=== PATIENT | female | born 2000 | race Caucasian/White ===

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

== ENCOUNTER 2023-10-04 21:10 | Emergency (ER) | payer OTHER ==
[~2023-10-04] VITALS: Ht 160 cm; Wt 72.6 kg
[2023-10-04 21:31] VITALS: BP 127/80; PULSE 106; RESP 16; TEMP 97.4; O2SAT 99
[2023-10-05] MEDS: ONDANSETRON 4 MG/2 ML VIAL IVP ONE (01:16)
[2023-10-05] MEDS: KETOROLAC 30 MG/ML VIAL IVP ONE (01:17)
[2023-10-05] MEDS: NACL 0.9% 1,000 ML IV ONE (01:17)
[2023-10-05 01:20] VITALS: O2SAT 98
[2023-10-05 01:26] LABS: BASOPHILS # (AUTO) 0.1 K/uL (0.00-0.22); BASOPHILS % (AUTO) 0.5 % (0.0-2.0); EOSINOPHILS # (AUTO) 0.1 K/uL (0-0.4); EOSINOPHILS % (AUTO) 0.6 % (0.0-4.0); HEMATOCRIT 46.3 % (36-48); HEMOGLOBIN 16.2 g/dL (12.0-16.0); LYMPHOCYTES # (AUTO) 1.9 K/uL (2.5-16.5); LYMPHOCYTES % (AUTO) 18.3 % (20.5-51.1); MEAN CORPUSCULAR HEMOGLOBIN 30 pg (27-31); MEAN CORPUSCULAR HGB CONC 35 g/dL (33-37); MEAN CORPUSCULAR VOLUME 85.3 fL (80-94); MONOCYTES # (AUTO) 0.7 K/uL (0.8-1.0); MONOCYTES % (AUTO) 6.3 % (1.7-9.3); NEUTROPHILS # (AUTO) 7.9 K/uL (1.8-7.7); NEUTROPHILS % (AUTO) 74.3 % (42.2-75.2); PLATELET COUNT (AUTO) 548 K/uL (140-450); RED BLOOD CELL COUNT(AUTO) 5.42 MIL/uL (4.20-5.40); RED CELL DISTRIBUTION WIDTH 12.6 % (11.6-13.7); WHITE BLOOD COUNT (AUTO) 10.6 K/uL (4.8-10.8)
[2023-10-05 01:33] LABS: ANION GAP 19.4 (8-16); CALCIUM 10.2 mg/dL (8.5-10.1); CARBON DIOXIDE 28.5 mmol/L (21-32); POTASSIUM 3.9 mmol/L (3.5-5.1)
[2023-10-05 01:44] LABS: APPEARANCE,URINE CLEAR (CLEAR); BILIRUBIN,URINE 1+ (NEGATIVE); BLOOD, URINE 2+ (NEGATIVE); COLOR,URINE YELLOW (YELLOW); LEUKOCYTE ESTERASE ,URINE 2+ (NEGATIVE); NITRITE, URINE NEGATIVE (NEGATIVE); PH,URINE 8.5 (5.0-9.0); PROTEIN,URINE 1+ (NEGATIVE); UGLUCOSE NEGATIVE (NEGATIVE); UROBILINOGEN,URINE 0.2 EU/dL (0.2 - 1)
[2023-10-05 01:58] LABS: ALBUMIN 4.8 g/dL (3.4-5.0); BILIRUBIN,DIRECT 0.1 mg/dL (0.0-0.3); TOTAL BILIRUBIN 0.7 mg/dL (0.0-1.0)
[2023-10-05 01:59] LABS: BACTERIA,URINE 1+ /HPF (None Seen); RBC,URINE 0-5 /HPF (0-5); SQUAMOUS EPITHELIAL CELL,UR 4-10 (MOD) /LPF (0-3 (FEW))
[2023-10-05 02:13] LABS: LACTIC ACID 3.1 mmol/L (0.4-2.0)
[2023-10-05 03:10] VITALS: O2SAT 98
[2023-10-05 05:37] VITALS: O2SAT 98
[2023-10-05] MEDS ORDERED: cefTRIAXone 1,000 MG VIAL ONE (05:39)
[2023-10-05] MEDS ORDERED: MORPHINE SULFATE 4 MG/ML SYR ONE (05:44)
[2023-10-05] MEDS: MORPHINE SULFATE 4 MG/ML SYR IVP ONE (05:48)
[2023-10-05] MEDS ORDERED: ONDA-188 SL (06:00)
[2023-10-05] MEDS ORDERED: CIPR500T4 PO (06:00)
[2023-10-05 06:05] VITALS: BP 105/58; PULSE 73; RESP 14; TEMP 97.4; O2SAT 98
[2023-10-05] MEDS ORDERED: NAPR-54 PO (06:06)
== END 2023-10-05 06:05 | disposition home or self-care (01) ==
LOC: MED 21:10
DX: N12 Tubulo-interstitial nephritis, not specified as acute or chronic (principal); Z79.899 Other long term (current) drug therapy
CPT/HCPCS: 36415; 74176; 80048; 80076; 81001; 83605; 85025; 87040; 87086; 96361; 96365; 96375; 99285; J0696; J1885; J2270; J2405; J7030